=== PATIENT | female | born 1970 | race African-American/Black ===

== ENCOUNTER 2016-07-19 11:10 | Emergency (ER) | payer SELFPAY ==
[~2016-07-19] VITALS: Ht 157.5 cm; Wt 63.5 kg
[~2016-07-19 11:10] MED LIST: CLON0.1T PO; HYDR-2666 PO; ONDA4TAB10 SL; PANT20TA2 PO; TRAM-29 PO
[2016-07-19 11:24] VITALS: BP 161/109
[2016-07-19] MEDS ORDERED: HYDR-971 PO (11:50)
[2016-07-19] MEDS ORDERED: AMOX500C PO (11:50)
--- NOTE | 2016-07-19 11:50 | PHYS DOC ---
Past Medical History Past Medical History: Hypertension Additional Past Medical Histor: blood transfusion x 2, UTERINE FIBROIDS Past Surgical History: Hysterectomy, Tubal ligation, Other Additional Past Surgical Histo: UTERINE FIBROIDS REMOVED Alcohol Use: None Drug Use: None Adult General Chief Complaint Chief Complaint: DENTAL PROBLEM HPI HPI Patient is a 45 year old female presents emergency room with complaint of right lower dental pain for approximately 3 days. Patient denies any injury to her tooth. Patient does admit that she's had problems with cavities chronically. She denies antibiotic use or dental procedures in the past 30 days. Review of Systems Review of Systems Constitutional: Denies fever or chills [] Eyes: Denies change in visual acuity, redness, or eye pain [] HENT: Denies nasal congestion or sore throat [] Respiratory: Denies cough or shortness of breath [] Cardiovascular: No additional information not addressed in HPI [] GI: Denies abdominal pain, nausea, vomiting, bloody stools or diarrhea [] : Denies dysuria or hematuria [] Musculoskeletal: Denies back pain or joint pain [] Integument: Denies rash or skin lesions [] Neurologic: Denies headache, focal weakness or sensory changes [] Endocrine: Denies polyuria or polydipsia [] Allergies Allergies Allergies Coded Allergies Type Severity Reaction Last Updated Verified gelatin Adverse Reaction Intermediate VOMITING 01/23/14 Yes Physical Exam Physical Exam Constitutional: Well developed, well nourished, no acute distress, non-toxic appearance. [] HENT: Normocephalic, atraumatic, bilateral external ears normal, oropharynx moist, no oral exudates, nose normal. There is no trismus. Right first mandibular molar is decayed into the pulp. There is no active purulent drainage. There is some adjacent gingival inflammation without fluctuant pocket/ abscess formation. Eyes: PERRLA, EOMI, conjunctiva normal, no discharge. [] Neck: Normal range of motion, no tenderness, supple, no stridor. [] Cardiovascular:Heart rate regular rhythm, no murmur [] Lungs & Thorax: Bilateral breath sounds clear to auscultation [] Abdomen: Bowel sounds normal, soft, no tenderness, no masses, no pulsatile masses. [] Skin: Warm, dry, no erythema, no rash. [] Back: No tenderness, no CVA tenderness. [] Extremities: No tenderness, no cyanosis, no clubbing, ROM intact, no edema. [] Neurologic: Alert and oriented X 3, normal motor function, normal sensory function, no focal deficits noted. [] Psychologic: Affect normal, judgement normal, mood normal. [] Current Patient Data Vital Signs Vital Signs Date Time Temp Pulse Resp B/P Pulse Ox O2 Delivery O2 Flow Rate FiO2 07/19/16 11:24 98.2 78 16 100 Room Air 98.2 EKG EKG [] Radiology/Procedures Radiology/Procedures [] Course & Med Decision Making Course & Med Decision Making Pertinent Labs and Imaging studies reviewed. (See chart for details) [] Dragon Disclaimer Dragon Disclaimer This electronic medical record was generated, in whole or in part, using a voice recognition dictation system. Departure Departure Impression: Primary Impression: Dental caries Disposition: HOME, SELF-CARE Condition: GOOD Referrals: NO PCP (PCP) Patient Instructions: Dental Caries-Brief Additional Instructions: 1. Take the medication as prescribed. 2. Apply warm compresses to your right jaw every 2 hours for 20-30 minutes at a time. 3. Review the discharge instructions for self-care and reasons to return the emergency department. 4. A separate list of dental clinics in schools provided to you for assistance in finding definitive dental care. Scripts Amoxicillin 500 Mg Capsule1 Cap PO TID #30 CAP Prov:BLANCA PERRY 07/19/16 Hydrocodone/Apap 5-325 ([place] 5-325 Tablet)1 Each Tablet1 Tab PO PRN Q6HRS PRN PAIN #15 TAB Prov:BLANCA PERRY 07/19/16 BLANCA PERRY Jul 19, 2016 11:50
== END 2016-07-19 12:01 | disposition home or self-care (01) ==
LOC: ER 11:10
DX: K02.9 Dental caries, unspecified (principal); I10 Essential (primary) hypertension; Z90.710 Acquired absence of both cervix and uterus; Z98.51 Tubal ligation status; Z88.8 Allergy status to other drugs, medicaments and biological substances
CPT/HCPCS: 99283

== ENCOUNTER 2017-02-03 11:27 | Emergency (ER) | payer SELFPAY ==
[~2017-02-03] VITALS: Ht 157.5 cm; Wt 68.0 kg
[~2017-02-03 11:27] MED LIST changes: +AMOX500C PO; -HYDR-2666 PO; +HYDR-2758 PO; +HYDR-971 PO; -TRAM-29 PO; +TRAM-48 PO
[2017-02-03 11:30] VITALS: BP 176/108
[2017-02-03] MEDS ORDERED: NAPROXEN 500 MG TABLET PO STA (11:56)
--- NOTE | 2017-02-03 11:57 | PHYS DOC ---
Past Medical History Past Medical History: Hypertension Additional Past Medical Histor: blood transfusion x 2, UTERINE FIBROIDS Past Surgical History: Hysterectomy, Tubal ligation, Other Additional Past Surgical Histo: UTERINE FIBROIDS REMOVED Alcohol Use: None Drug Use: None Adult General Chief Complaint Chief Complaint: DENTAL PROBLEM HPI HPI Patient is a 46 year old female with history of hypertension who presents today with dental abscess on the right lower jaw that began yesterday. Patient states she is going to follow up with [facility] for extraction. Patient denies any fever or trismus. Review of Systems Review of Systems Constitutional: Denies fever or chills [] Eyes: Denies change in visual acuity, redness, or eye pain [] HENT:dental abscess on the right lower jaw Integument: Denies rash or skin lesions [] Neurologic: Denies headache, focal weakness or sensory changes [] Endocrine: Denies polyuria or polydipsia [] Current Medications Current Medications Current Medications Medications (Trade) Dose Ordered Sig/Jaylen Start Time Stop Time Status Last Admin Dose Admin Acetaminophen/ Hydrocodone Bitart (Lortab 5/325) 1 tab 1X ONCE 02/03/17 12:00 02/03/17 12:01 DC 02/03/17 12:08 1 TAB Naproxen (Naprosyn) 500 mg 1X STAT 02/03/17 11:56 02/03/17 11:58 DC 02/03/17 12:07 500 MG Allergies Allergies Allergies Coded Allergies Type Severity Reaction Last Updated Verified gelatin Adverse Reaction Intermediate VOMITING 01/23/14 Yes Physical Exam Physical Exam Constitutional: Well developed, well nourished, no acute distress, non-toxic appearance. [] HENT: Normocephalic, atraumatic, bilateral external ears normal, oropharynx moist, no oral exudates, nose normal. [] Right lower gum with mild swelling consistent with a dental abscess. Tooth #28 is broken and decayed. Scattered dental caries noted. Skin: Warm, dry, no erythema, no rash. [] Back: No tenderness, no CVA tenderness. [] Extremities: No tenderness, no cyanosis, no clubbing, ROM intact, no edema. [] Neurologic: Alert and oriented X 3, normal motor function, normal sensory function, no focal deficits noted. [] Psychologic: Affect normal, judgement normal, mood normal. [] Current Patient Data Vital Signs Vital Signs Date Time Temp Pulse Resp B/P (MAP) Pulse Ox O2 Delivery O2 Flow Rate FiO2 02/03/17 12:08 18 97 Room Air EKG EKG [] Radiology/Procedures Radiology/Procedures [] Course & Med Decision Making Course & Med Decision Making Pertinent Labs and Imaging studies reviewed. (See chart for details) Patient is in the ED with a dental abscess. Discharged with amoxicillin naproxen and 10 tablets of [place] as needed for severe pain. She will follow-up with [facility] for extraction week. Dragon Disclaimer Dragon Disclaimer This electronic medical record was generated, in whole or in part, using a voice recognition dictation system. Departure Departure Impression: Primary Impression: Dentalgia Additional Impression: Dental abscess Disposition: HOME, SELF-CARE Condition: STABLE Referrals: NO PCP (PCP) Follow up with [facility] next week. Patient Instructions: Dental Abscess Additional Instructions: You were seen for dental abscess and dental caries. Please complete your antibiotics. Follow-up with your dentist next week for extraction. We do not extract teeth in the emergency room. Do not drive or operate machinery on pain medicine. Scripts Hydrocodone/Apap 5-325 ([place] 5-325 TABLET) 1 Each Tablet 1 TAB PO PRN Q6HRS Y for PAIN, #10 TAB 0 Refills Prov: SHERRI FLOYD APRN 02/03/17 Amoxicillin (AMOXICILLIN) 875 Mg Tablet 1 TAB PO BID, #20 TAB Prov: SHERRI FLOYD APRN 02/03/17 Problem Qualifiers SHERRI FLOYD APRN Feb 03, 2017 11:57
[2017-02-03] MEDS ORDERED: HYDROcodone/APAP 5/325MG 1 TAB TABLET PO ONE (12:00)
[2017-02-03] MEDS ORDERED: HYDR-971 PO (12:10)
[2017-02-03] MEDS ORDERED: AMOX875T PO (12:10)
== END 2017-02-03 12:15 | disposition home or self-care (01) ==
LOC: ER 11:27
DX: K04.7 Periapical abscess without sinus (principal); I10 Essential (primary) hypertension; Z88.8 Allergy status to other drugs, medicaments and biological substances; Z90.710 Acquired absence of both cervix and uterus
CPT/HCPCS: 99283

== ENCOUNTER 2017-07-04 10:24 | Emergency (ER) | payer SELFPAY | END 2017-07-04 10:40 | disposition home or self-care (01) | LOC: ER 10:24 | DX: H10.31 Unspecified acute conjunctivitis, right eye (principal); J06.9 Acute upper respiratory infection, unspecified; B97.89 Other viral agents as the cause of diseases classified elsewhere; I10 Essential (primary) hypertension; Z88.8 Allergy status to other drugs, medicaments and biological substances; Z90.710 Acquired absence of both cervix and uterus; Z98.51 Tubal ligation status | CPT/HCPCS: 99283 ==